=== PATIENT | female | born 1955 | race Caucasian/White ===

== ENCOUNTER → 2016-10-06 | Outpatient (CLI) | payer BC ==
[~2016-10-06] MED LIST: CALCIUM 600 + D1 TA1 PO; HCTZ PO; SYNTHROID PO; VASOTEC PO; [UNRECOGNIZED DRUG - REMARK]
--- NOTE | ~2016-10-06 | MY11 ---
[facility] A Service of [facility] RADIOLOGY TEXT RESULTS PATIENT: BRENT TRUJILLO LOCATION: [facility] : 55 UNIT #: [id number] AGE: [address]: Leanne Mckeon APRN SEX: F ORDER DR: [id number] [address] [address] [id number] O MR#: [id number] Acc #: [id number] NAME: BRENT TRUJILLO. : 1955 SEX: F STUDY DATE/TIME: 10/06/2016 9:09 UNIT: [facility] ROOM: STUDY DESCRIPTION: MY Mammogram Screening Dig Enoch Attending Physician: Leanne Mckeon A.P.R.N. Referring Physician: Leanne Mckeon A.P.R.N. Ordering Physician: Leanne Mckeon A.P.R.N. Primary Care Physician: Khloe Longo M.D. MEDICAL IMAGING REPORT This report is preliminary unless electronic signature is present. EXAM Bilateral digital screening mammogram with CAD, 10/06/2016. INDICATION 61-year-old female for routine screening. No reported problems. No personal or family history of breast cancer. No surgeries. TECHNIQUE CC and MLO views of the breast were obtained and reviewed with and FDA-approved CAD device. COMPARISONS 08/24/2015, 09/25/2014, 08/15/2013 FINDINGS Breast parenchyma is composed of scattered fibroglandular densities. The pattern is unchanged. There is no new dominant nodule, mass, or suspicious cluster of microcalcifications. There are benign calcifications present. Nodularity in both breasts is stable. IMPRESSION Benign screening mammogram. 1 year followup recommended. Patients over the age of 40 are entered into a reminder system with target due date for the next mammogram. A result letter will also be sent to the patient. BIRADS: 2 Benign finding. Dictated by... [facility] A Service [facility] RADIOLOGY TEXT RESULTS PATIENT: BRENT TRUJILLO LOCATION: [facility] : 55 UNIT #: [id number] AGE: [address]: Leanne Mckeon APRN SEX: F ORDER DR: Ori Valente M.D. THIS IS AN ELECTRONICALLY VERIFIED REPORT Ori Valente M.D. at 10/06/2016 4:50 PM TERRY/jocelyne TD: 10/06/2016 12:48 JOB #: [id number] MEDICAL IMAGING REPORT Page 1 of 1
== END | disposition home or self-care (01) ==
LOC: SMAM 08:35
DX: Z12.31 Encounter for screening mammogram for malignant neoplasm of breast (principal)
CPT/HCPCS: G0202